=== PATIENT | male | born 1985 | race Caucasian/White ===

== ENCOUNTER 2017-11-02 16:18 | Emergency (ER) | payer MEDICAID ==
[~2017-11-02] VITALS: Ht 165.1 cm; Wt 76.8 kg
[2017-11-02 16:34] VITALS: Ht 165.1 cm; Wt 76.8 kg
[2017-11-02 17:30] VITALS: BP 144/90
== END 2017-11-02 17:30 | disposition home or self-care (01) ==
LOC: ED 16:18
DX: L03.317 Cellulitis of buttock (principal)

== ENCOUNTER 2017-11-04 15:14 | Emergency (ER) | payer MEDICAID ==
[~2017-11-04] VITALS: Ht 165.1 cm; Wt 74.8 kg
[2017-11-04 15:29] VITALS: Ht 165.1 cm; Wt 74.8 kg
[2017-11-04 16:40] LABS: CALCIUM 8.5 mg/dL (8.5-10.1); CARBON DIOXIDE 26.8 mmol/L (21-32); CHLORIDE SERUM 104 mmol/L (98-107); CREATININE SERUM 0.7 mg/dL (0.7-1.3); GFR1 > 60 mL/min; GLUCOSE SERUM 98 mg/dL (74-106); SODIUM SERUM 140 mmol/L (136-145)
[2017-11-04 16:42] LABS: BASOPHIL % 0.4 % (0-2); PLATELET COUNT 254 x10^3mcL (130-400); RED CELL DISTRIBUTION WIDTH 13.2 % (11.5-14.5)
[2017-11-04 16:44] LABS: ALBUMIN 3.4 g/dL (3.4-5.0); ALKALINE PHOSPHATASE 80 U/L (46-116); ALT/SGPT 65 U/L (16-63); AST/SGOT 34 U/L (15-37); BILIRUBIN TOTAL 0.52 mg/dL (0.20-1.00)
[2017-11-04 19:56] VITALS: BP 123/71
== END 2017-11-04 19:56 | disposition home or self-care (01) ==
LOC: ED 15:14
PROVIDERS: Emergency Medicine
DX: L02.31 Cutaneous abscess of buttock (principal)
CPT/HCPCS: J1885; J2001; J2543; J7030; Q9967